=== PATIENT | female | born 1955 | race Caucasian/White ===

== ENCOUNTER 2017-09-17 18:26 | Emergency (ER) | payer BC ==
[~2017-09-17] VITALS: Ht 154.9 cm; Wt 48.1 kg
[2017-09-17 18:34] VITALS: BP 197/84; PULSE 79; RESP 16; TEMP 99.2; O2SAT 99
[2017-09-17 18:50] LABS: BLOOD, URINE LARGE (NEG); GLUCOSE,URINE NEG (NEG); KETONE, URINE NEG (NEG); NITRITE,URINE POS (NEG); URINE LEUKOCYTE ESTERASE LARGE (NEG)
[2017-09-17 18:54] LABS: BILIRUBIN, URINE NEG (NEG)
[2017-09-17 19:09] LABS: URINE COLOR PINK (YELLW/STRAW)
[2017-09-17 19:10] LABS: RBC, URINE INNUM /hpf (0-3); SQUAMOUS EPITHELIAL CELL URINE 0-5 /hpf (0-5)
[2017-09-17 19:20] VITALS: BP 184/90; PULSE 86; RESP 16; O2SAT 97
[2017-09-17] MEDS ORDERED: PHENAZOPYRIDINE HCL 100 MG TAB PO ONE (19:45)
[2017-09-17] MEDS ORDERED: cefTRIAXone INJ 1,000 MG in SODIUM CHLORIDE 0.9% INJ 100 ML IV ONE (19:45)
--- NOTE | 2017-09-17 19:46 | PD ---
HPI Chief Complaint: Complaint Time Seen by Provider: 19:40 Travel History International Travel<30 days: No Contact w/Intl Traveler<30days: No Traveled to known affect area: No History of Present Illness HPI 61 year-old female presents to the emergency department by private transportation for 12 hours of dysuria frequency urgency and now developing hematuria. Patient denies any fever but has felt chilled. Patient's had no abdominal pain or suprapubic pressure. Patient denies flank pain. Patient has prior history of kidney stones with states symptoms are not the same. Patient' s had remote urinary tract infection the past for similar symptoms. Patient also has prior history of remote breast cancer with lumpectomy and chemotherapy. Patient denies any other concerns or complaints. Patient has appointment with her primary care provider for an annual physical tomorrow. Patient's primary care provider is located in [place]. 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 PFSH Past Medical History Narrative Medical UTI, kidney stone, breast cancer with lumpectomy and chemotherapy-completed; no tobacco use: Nursing notes reviewed Tetanus Vaccination: Unknown Influenza Vaccination: No ?: Not Social History Alcohol Use: No Tobacco Use: No Substance Use: No Allergies-Medications (Allergen,Severity, Reaction): Coded Allergies: No Known Allergies (Unverified , 09/17/17) Reported Meds & Prescriptions Reported Meds & Active Scripts Active Pyridium (Phenazopyridine HCl) 100 Mg Tab 100 Mg PO Q8H PRN Bactrim DS (Sulfamethoxazole-Trimethoprim) 800-160 Mg Tab 1 Tab PO BID Narrative Medication No current medications. Review of Systems Except as stated in HPI: all other systems reviewed are Neg General / Constitutional: Positive: Chills, No: Fever HENT: No: Congestion Cardiovascular: No: Chest Pain or Discomfort Respiratory: No: Shortness of Breath Gastrointestinal: No: Nausea, Vomiting, Diarrhea, Abdominal Pain Genitourinary: Positive: Urgency, Frequency, Dysuria, Hematuria, No: Pelvic Pain, Flank Pain Musculoskeletal: No: Myalgias, Arthralgias Skin: No Rash Neurologic: No: Weakness Psychiatric: No: Anxiety Hematologic/Lymphatic: No: Easy Bruising Physical Exam Narrative GENERAL: Well-developed well-nourished female in no acute distress no respiratory distress; triage vital signs hypertensive SKIN: Warm and dry. HEAD: Normocephalic. EYES: No scleral icterus. No injection or drainage. NECK: Supple, trachea midline. No JVD or lymphadenopathy. CARDIOVASCULAR: Regular rate and rhythm without murmurs, gallops, or rubs. RESPIRATORY: Breath sounds equal bilaterally. No accessory muscle use. GASTROINTESTINAL: Abdomen soft, non-tender, nondistended. MUSCULOSKELETAL: No cyanosis, or edema. BACK: Nontender without obvious deformity. No CVA tenderness. Data Data Last Documented VS Vital Signs Date Time Temp Pulse Resp B/P (MAP) Pulse Ox O2 Delivery O2 Flow Rate FiO2 09/17/17 19:20 86 16 184/90 (121) 97 Room Air 09/17/17 18:34 99.2 Orders Orders Urinalysis - C+S If Indicated (09/17/17 18:34) Urine Culture (09/17/17 18:39) Complete Blood Count With Diff (09/17/17 19:40) Basic Metabolic Panel (Bmp) (09/17/17 19:40) Iv Access Insert/Monitor (09/17/17 19:40) Ceftriaxone Inj (Rocephin Inj) (09/17/17 19:45) Phenazopyridine (Pyridium) (09/17/17 19:45) Ed Discharge Order (09/17/17 20:44) Labs Laboratory Tests Test 09/17/17 18:39 09/17/17 19:54 Urine Color PINK Urine Turbidity CLOUDY Urine pH 7.0 Urine Specific [place] 1.011 Urine Protein 100 mg/dL Urine Glucose (UA) NEG mg/dL Urine Ketones NEG mg/dL Urine Occult Blood LARGE Urine Nitrite POS Urine Bilirubin NEG Urine Leukocyte Esterase LARGE Urine RBC INNUM /hpf Urine WBC 9-14 /hpf Urine Squamous Epithelial Cells 0-5 /hpf Microscopic Urinalysis Comment CULTURE INDICATED White Blood Count 13.0 TH/MM3 Red Blood Count 5.48 MIL/MM3 Hemoglobin 14.7 GM/DL Hematocrit 46.9 % Mean Corpuscular Volume 85.5 FL Mean Corpuscular Hemoglobin 26.9 PG Mean Corpuscular Hemoglobin Concent 31.4 % Red Cell Distribution Width 13.3 % Platelet Count 237 TH/MM3 Mean Platelet Volume 8.8 FL Neutrophils (%) (Auto) 78.3 % Lymphocytes (%) (Auto) 11.2 % Monocytes (%) (Auto) 6.4 % Eosinophils (%) (Auto) 0.4 % Basophils (%) (Auto) 3.7 % Neutrophils # (Auto) 10.1 TH/MM3 Lymphocytes # (Auto) 1.5 TH/MM3 Monocytes # (Auto) 0.8 TH/MM3 Eosinophils # (Auto) 0.1 TH/MM3 Basophils # (Auto) 0.5 TH/MM3 CBC Comment DIFF FINAL Differential Comment Blood Urea Nitrogen 16 MG/DL Creatinine 0.92 MG/DL Random Glucose 106 MG/DL Calcium Level 9.7 MG/DL Sodium Level 136 MEQ/L Potassium Level 3.7 MEQ/L Chloride Level 100 MEQ/L Carbon Dioxide Level 28.7 MEQ/L Anion Gap 7 MEQ/L Estimat Glomerular Filtration Rate 62 ML/MIN MDM Medical Decision Making Medical Screen Exam Complete: Yes Emergency Medical Condition: Yes Medical Record Reviewed: Yes Interpretation(s) CBC & BMP Diagram 09/17/17 19:54 Calcium Level 9.7 Vital Signs Date Time Temp Pulse Resp B/P (MAP) Pulse Ox O2 Delivery O2 Flow Rate FiO2 09/17/17 19:20 86 16 184/90 (121) 97 Room Air 09/17/17 18:34 99.2 79 16 197/84 (121) 99 UA: Positive nitrites positive leukocyte Estrace positive WBCs positive innumerable RBCs; culture indicated Differential Diagnosis UTI, hemorrhagic cystitis, bladder mass, renal mass, anemia, renal insufficiency , hypertension Narrative Course Well-developed well-nourished 61-year-old female in no acute distress with hypertensive triage blood pressure presents with dysuria frequency urgency and more recently hematuria in the past 12 hours with prior history of kidney stones and remote history of rare UTI and breast cancer. Urine specimen collected and is identified to have nitrites leukocyte Estrace few wbc's innumerable red blood cells and culture is indicated. Specimens collected for CBC basic metabolic panel and given first dose of antibiotic as well as Pyridium for dysuria symptoms. Imaging deferred at this time. Blood pressure rechecked. Patient aware of lab results in stable for outpatient management has appointment with primary care provider in the a.m. and will pursue during that appointment elevated blood pressures that were noted in the emergency department as she typically does not have elevation of her blood pressure Diagnosis Primary Impression: UTI (urinary tract infection) Additional Impression: Elevated BP without diagnosis of hypertension Referrals: Primary Care Physician call for appointment Patient Instructions: General Instructions Additional Instructions: Increase fluid hydration Complete course of antibiotic as prescribed Follow-up with your primary care provider Return to the emergency department for any concerns or change in condition Take acetaminophen/Tylenol as often as every 4 hours as needed for fever 100.4 F or greater or may take ibuprofen/Advil/Motrin per package directions as often as every 6-8 hours as needed for fever 100.4F or greater or for pain associated with inflammation Med/Other Pt SpecificInfo: Prescription(s) given Scripts Phenazopyridine (Pyridium) 100 Mg Tab 100 MG PO Q8H Y for DYSURIA, #6 TAB 0 Refills Prov: Nuvia Rooney MD 09/17/17 Sulfamethoxazole-Trimethoprim (Bactrim DS) 800-160 Mg Tab 1 TAB PO BID for Infection, #20 TAB 0 Refills Prov: Nuvia Rooney MD 09/17/17 Disposition: 01 DISCHARGE HOME Condition: Stable Nuvia Rooney MD Sep 17, 2017 19:46
[2017-09-17 20:00] LABS: AUTOMATED NEUTROPHIL # 10.1 TH/MM3 (1.8-7.7); BASOPHIL # 0.5 TH/MM3 (0-0.2); BASOPHIL % 3.7 % (0.0-2.0); EOSINOPHIL # 0.1 TH/MM3 (0-0.4); EOSINOPHIL % 0.4 % (0.0-4.0); HEMATOCRIT 46.9 % (35.0-46.0); HEMOGLOBIN 14.7 GM/DL (11.6-15.3); LYMPH % 11.2 % (9.0-44.0); LYMPHOCYTE # 1.5 TH/MM3 (1.0-4.8); MEAN CELL VOLUME 85.5 FL (80.0-100.0); MEAN CORPUSCULAR HEMOGLOBIN 26.9 PG (27.0-34.0); MEAN CORPUSCULAR HGB CONC 31.4 % (32.0-36.0); MEAN PLATELET VOLUME 8.8 FL (7.0-11.0); MONO % 6.4 % (0.0-8.0); MONOCYTE # 0.8 TH/MM3 (0-0.9); NEUT % 78.3 % (16.0-70.0); PLATELET COUNT 237 TH/MM3 (150-450); RED BLOOD COUNT 5.48 MIL/MM3 (4.00-5.30); RED CELL DISTRIBUTION WIDTH 13.3 % (11.6-17.2)
[2017-09-17 20:13] LABS: BICARBONATE 28.7 MEQ/L (21.0-32.0); CALCIUM 9.7 MG/DL (8.5-10.1)
[2017-09-17 20:17] LABS: CREATININE 0.92 MG/DL (0.50-1.00)
[2017-09-17] MEDS ORDERED: PHEN0.4T PO (20:46)
[2017-09-17] MEDS ORDERED: BACT800T5 PO (20:46)
[2017-09-17 21:00] VITALS: BP 150/69
== END 2017-09-17 21:08 | disposition home or self-care (01) ==
LOC: PHED 18:26
DX: N39.0 Urinary tract infection, site not specified (principal); R03.0 Elevated blood-pressure reading, without diagnosis of hypertension; B96.89 Other specified bacterial agents as the cause of diseases classified elsewhere; Z85.3 Personal history of malignant neoplasm of breast; Z87.442 Personal history of urinary calculi
CPT/HCPCS: 80048; 81001; 85025; 87086; 96365; 99284; J0696